=== PATIENT | male | born 1955 | race Two or more races ===

== ENCOUNTER → 2016-11-24 | Outpatient (CLI) | payer MEDICARE, MEDICAID ==
[~2016-11-24] MED LIST: ANTIVERT25 MG PO; ASPIRIN (CHILDR81 MG PO; ASPIRIN LO-DOSE81 MG PO; BENADRYL25 MG PO; BENADRYL50 MG PO; BREO ELLIPTA 11 EACH INH; CHLORTHALIDONE25 MG PO; COLACE100 MG PO; COREG12.5 MG PO; COREG25 MG PO; COZAAR100 MG PO; DELTASONE10 MG PO; DESYREL150 MG PO; GLUCOPHAGE1000 MG PO; GLUCOPHAGE500 MG PO; ISORDIL10 MG PO; LIPITOR40 MG PO; MELATONIN1 MG PO; NICODERM (HABIT14 MG TRANS; NICODERM/HABITR21 MG TRANS; NITROSTAT0.4 MG SL; NORVASC10 MG PO; PLAVIX75 MG PO; PRINIVIL OR ZES10 MG PO; PROVENTIL OR V6.7 GM INH; TYLENOL EXTRA500 MG PO; VITAMIN A OTIC; VITAMIN B-1000 MCG/M SUB-Q; WELLBUTRIN XL150 M1 PO; ZOCOR40 MG PO; ZYRTEC10 MG PO
--- NOTE | ~2016-11-24 | ESTC ---
Cardiac Perfusion Imaging Demographics Patient Name ISSA Howard SR Gender Male Patient Number [id number] Race Other Visit Number [id number] [place] [id number] Room Number Accession Number [id number] Height 64 inches Date of 1955 Weight 135 pounds Interpreting Benjamin Adames MD Date of study 11/24/2016 Physician Supervising /ANGELIQUE [place] Technologist Phylicia Brenner APRN Ordering Physician Stress pest control technician Stress ECG Reading Mayra [place] Nurse Casandra Brewster RN Physician VIPUL Brown RN The procedure was explained in detail to the patient. Risks, complications and alternative treatments were reviewed. Written consent was obtained. Procedure Admit Source:Other. Procedure Type: Nuclear Stress Test:Pharmacological, Lexiscan, Cardiolite Stress Test Procedure Start time: 11/24/2016 00:00 Indications: Chest pain. Risk Factors The patient risk factors include:prior CABG on 06/15/2002;cerebrovascular disease, Current/Recent(w/in 1 year) tobacco use, orally-treated diabetes mellitus and prior [place] . Conclusions Summary Cardiolite SPECT images demonstrate an inducible reversible defect of moderate to severe severity involving the inferior wall and apex. This does extend into the inferoseptal and inferolateral [place]. No evidence of underlying fixed defect. Normal TID ratio Gated images demonstrate mild inferior wall hypokinesis with overall preserved left ventricular systolic function. LVEF is 60% Stress Protocols Resting ECG RSR with T wave inversion in V3, V4, V5, V6. Resting HR:66 bpm Resting BP:143/60 mmHg Pre-stress physical exam: Occitan speaking only male who has had complaints of exertional chest pain. Stress Protocol:Pharmacologic Peak HR:157 bpm HR response: Appropriate Peak BP:130/60 mmHg BP response: Appropriate Predicted HR: 157 bpm HR/BP product:11286 % of predicted HR: 100 Reason for termination:Infusion complete ECG Findings RSRSR with T wave now upright in V2m V3, V4, V5,V6. Arrhythmias No rhythm abnormality. Symptoms No symptoms with Lexiscan infusion. Stress Interpretation Negative pharmacologic stress ECG for ischemia. Normal heart rate and blood pressure response to stress. No atrial or ventricular arrhythmias. Stress supervision and interpretation provided by Hallie Nunez APRN . Imaging Results Summed scores - Summed stress score: 12 - Summed rest score: 3 - Summed difference score: 9 Stress ejection Ejection fraction:60 % EDV :67 ml ESV :27 ml Stroke volume :40 ml LV mass :85 gr Imaging Protocols Rest Stress Isotope:Tc99m Sestamibi IV Isotope: Tc99m Sestamibi IV Isotope dose:10.8 mCi Isotope dose:32.4 mCi Date:11/24/2016 07:50 Date:11/24/2016 09:37 Technique: SPECT Technique: Gated Supine SPECT Supine Scan Time:30 minutes post injection Scan Time:45-60 minutes post injection Procedure Medications - Albuterol 2.5 mg. - Regadenoson (Lexiscan) 0.4 mg IV over 10-15 sec. I.V. 0.4 mg. Medical History Admission Medications + +------+ + + +--------+ !Name !Dosage!Times per day !Start date !Stop date !Details ! + +------+ + + +--------+ !Statin (any)! ! ! ! ! ! + +------+ + + +--------+ !Clopidogrel ! ! ! ! ! ! + +------+ + + +--------+ Admission Data Admission date: 11/24/2016 Admission Time: 07:21 Hospital Status: Outpatient. Signatures dtt: Zacarias Alexander (cardio) dtd: 11/24/16 0000 Physician Self Edit
== END | disposition disaster alternative care site (69) ==
LOC: GRAD 11-18 07:30
DX: R07.9 Chest pain, unspecified (principal); I67.9 Cerebrovascular disease, unspecified; E11.9 Type 2 diabetes mellitus without complications; I25.2 Old myocardial infarction; Z72.0 Tobacco use; Z95.1 Presence of aortocoronary bypass graft
CPT/HCPCS: A9500; J0280; J2785

== ENCOUNTER → 2016-12-05 | Outpatient (CLI) | payer MEDICARE, MEDICAID ==
[2016-12-05 16:44] LABS: BASOPHIL # 0.1 K/uL (0.0-0.2); BASOPHIL % 0.8 %; EOSINOPHIL # 0.8 K/uL (0.0-0.5); HEMATOCRIT 40.8 % (37.0-53.0); HEMOGLOBIN 14.5 g/dL (11.0-16.0); IMMATURE GRANULOCYTE % 0.2 %; LYMPHOCYTE # 3.9 K/uL (0.8-4.0); LYMPHOCYTE % 39.7 %; MCH 30.7 pg (27.0-34.0); MCHC 35.5 gm/dL (32.0-36.5); MCV 86.4 fl (83.0-98.0); MONOCYTE # 0.5 K/uL (0.0-1.0); MPV 9.4 fl (9.4-12.4); NEUTROPHIL # (ANC) 4.5 K/uL (1.4-9.0); NEUTROPHIL % 46.3 %; NRBC % 0 /100WBC (0-0.00); PLATELET COUNT 308 K/uL (150-450); RBC 4.72 M/uL (3.50-5.50); RDW-CV 13.1 % (11.9-14.6); WBC 9.8 K/uL (4.0-11.0)
[2016-12-05 16:52] LABS: ALBUMIN 4.2 gm/dL (3.5-5.0); ANION GAP 12.6 (10.0-19.0); BLOOD UREA NITROGEN 14 mg/dL (6-24); CALCIUM 9.4 mg/dL (8.5-10.5); CHLORIDE 97 mMol/L (96-110); CO2 27 mMol/L (22-32); ESTIMATED GFR (MDRD EQUATION) > 60; PHOSPHORUS 3.4 mg/dL (2.5-4.9); POTASSIUM 3.6 mMol/L (3.7-5.1); SODIUM 133 mMol/L (135-145)
== END | disposition disaster alternative care site (69) ==
LOC: LCNC 16:37
PROVIDERS: Internal Medicine Interventional Cardiology
DX: R07.9 Chest pain, unspecified (principal)

== ENCOUNTER 2016-12-08 07:44 | Outpatient (CLI) | payer MEDICARE, MEDICAID ==
[~2016-12-08] VITALS: Ht 165.1 cm; Wt 56.4 kg
--- NOTE | ~2016-12-08 | CATH ---
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 Informed consent was obtained in the written and verbal form after the risks and benefits were explained. The patient had no further questions and agreed to proceed. The planned puncture-incision site(s) were shaved and prepped with ChloraPrep and draped in the usual sterile manner. Conscious sedation, supplemental oxygen, and pain control medications were delivered by a registered nurse under physician guidance. Surface ECG rhythm, blood pressure measurement, and pulse oximetry were monitored throughout the procedure. Arterial access. The access site was infiltrated with lidocaine. The vessel was entered with the Seldinger technique. A sheath was advanced into the vessel and used for catheter placement. Selective left coronary angiography. A catheter was advanced into the left coronary vessel ostium under Fluoroscopic guidance. Contrast was injected by hand. Images were obtained in multiple projections. Selective right coronary angiography. A catheter was advanced into the right coronary vessel ostium under fluoroscopic guidance. Contrast was injected by hand. Images were obtained in multiple projections. Selective OCONNELL graft angiography. A catheter was advanced into the left internal mammary graft ostium under fluoroscopic guidance. Contrast was injected by hand. Images were obtained in multiple projections. Selective SVG angiography. A catheter was advanced into the graft proximal anastomosis under fluoroscopic guidance. Contrast was injected by hand. Images were obtained in multiple projections. Selective Free Radial angiography. A catheter was advanced into the free radial graft proximal anastomosis under fluoroscopic guidance. Contrast was injected by hand. Images were obtained in multiple projections. Left heart catheterization. A catheter was advanced across the aortic valve to the left ventricle under fluoroscopic guidance. Resting hemodynamics were obtained. Arterial artery hemostasis. Hemostasis was achieved. The patient was transferred to a regular nursing floor via cart accompanied by a nurse. The patient left the laboratory in stable condition. Diagnostic Cath Status: Elective Procedure Procedure Type Diagnostic procedure:Angiography:, Coronary Angios w/Grafts, [facility] Indications: Chest pain. Angiographic Findings Dominance: Right Cardiac Arteries and Lesion Findings LMCA: Normal (0% Stenosis). LAD: Normal (0% Stenosis) and Abnormal.medium mid complete 99% diffuse in-stent restenosis mid LCx: Normal (0% Stenosis) and Abnormal.small occluded RCA: Abnormal.Prox 10% Graft Lesions Lesion on Aorta Right to 1st Ob Pricila: Proximal body.85% stenosis . Lesion on Aorta Right to 1st Ob Pricila: Distal body.95% stenosis . Cardiac Grafts - There is a Radial graft that originates at the Aorta Right and attaches to the Dist LAD. - There is a Free OCONNELL graft that originates at the OCONNELL and attaches to the 1st Diag. - There is a Vein graft that originates at the Aorta Right and attaches to the 1st Ob Pricila.There is a previous stent on Aorta Right to 1st Ob Pricila Distal Body. - There is a Vein graft that originates at the Aorta Right and attaches to the Mid RCA. Coronary Tree Procedure Data Procedure Date Date: 12/08/2016Start: 09:58 AMEnd: 10:46 AM Entry Locations - Retrograde Percutaneous access was performed through the Femoral artery (Primary location). A 6 Fr sheath was inserted. Hemostasis was successfully obtained using Manual Compression. Closure Comments: proglide used and manual pressure by Julius Landa Procedure Medications Order and Administration + + +-------+------+ !Time !Medication !Dosage !Route ! + + +-------+------+ !12/08/2016 09:56 AM !Versed !1 mg !I.V. ! + + +-------+------+ !12/08/2016 09:57 AM !Fentanyl !25 mcg ! ! + + +-------+------+ Devices Used - A6 Fr. BS JL 4 Diag. Catheterwas used for:Left coronary angiography. - A6 Fr. BS JR 4 Diag. Catheterwas used for:Right coronary angiography. - A6 Fr. BS IMT Diag. Catheterwas used for:OCONNELL. - A6 Fr. BS LCB Diag. Catheterwas used for:Radial Graft. - A6 Fr. BS Angled Pigtail Diag. Catheterwas used for:LV Pressures. Contrast Material - Isovue [id number] ml Fluoroscopy Time: Diagnostic: 7:42 minutes. Total: 7:42 minutes. Fluoroscopy Dose: Diagnostic: 563 mGy. Total: 563 mGy. Estimated Blood Loss: 5 ml. Medical History Allergies - No known allergies. Risk Factors The patient risk factors include:prior PCI on 06/15/2011; prior CABG on 06/15/2002;cerebrovascular disease, hypercholesterolemia, hypertension, orally-treated diabetes mellitus, last creatinine: 1 mg/dl, creatinine clearance: 60.32 ml/min, Current/Recent(w/in 1 year) tobacco use and prior [place] . Admission Data Admission Date: 12/08/2016 Admission Time: 07:44 AM Arrival Date: 12/08/2016 Arrival Time: 12:00 AM Admit Source: Other Insurance Payors: Medicare. Admission Medications + +------+------+ + + + + !Medication !Dosage!Times !Last !Last !Administered !Comments ! ! ! !Per !Delivery !Delivery ! ! ! ! ! !Day !Date !Time ! ! ! + +------+------+ + + + + !Statin ! ! !12/08/2016 !12:00 AM !Yes ! ! !(any) ! ! ! ! ! ! ! + +------+------+ + + + + !Clopidogrel! ! !12/08/2016 !12:00 AM !Yes ! ! + +------+------+ + + + + Hemodynamics Condition: Rest O2 Consumption: Estimated: 187.34Heart Rate: 67 bpm Pressures (mmHg) +-----+ + !Site !Pressure ! +-----+ + !AO !197/167 (172) ! +-----+ + !AO !122/62 (83) ! +-----+ + !LV !131/1 ,18 ! +-----+ + !LV !131/0 ,16 ! +-----+ + !AO !134/52 (86) ! +-----+ + !LV !132/0 ,18 ! +-----+ + Valve Gradients and Areas + +---------+---------+---------+ +---------+ + !Valve !Peak !Mean !Area !Index !Flow !Source ! + +---------+---------+---------+ +---------+ + !Aortic !0 !0 ! ! ! ! ! + +---------+---------+---------+ +---------+ + !Aortic !0 !0 ! ! ! ! ! + +---------+---------+---------+ +---------+ + Shunts Oxygen Values O2 Capacity 197.2 O2 Consumption 187.34 Discharge Data Discharge Date: 12/08/2016 Hospital Status: Outpatient Signatures dtt: Zacarias Alexander (cardio) dtd: 12/08/16 0958 Physician Self Edit
[~2016-12-08 07:44] MED LIST changes: -ISORDIL10 MG PO
[2016-12-08] MEDS ORDERED: ISORDIL10 MG PO (13:08)
== END 2016-12-08 13:45 | disposition disaster alternative care site (69) ==
LOC: GPOC 07:44 → GPCU 07:44 → GPOC 08:00
PROC: 4A023N7 Measurement of Cardiac Sampling and Pressure, Left Heart, Percutaneous Approach (ICD-10-PCS; principal; 2016-12-08)
PROC: B216YZZ Fluoroscopy of Right and Left Heart using Other Contrast (ICD-10-PCS; 2016-12-08)
DX: R94.39 Abnormal result of other cardiovascular function study (principal); R07.9 Chest pain, unspecified
CPT/HCPCS: C1760; J0583; J1644; J2001; J2250; J3010; J7030; J7060